=== PATIENT | female | born 1940 | race Caucasian/White ===

== ENCOUNTER 2019-11-20 19:22 | Inpatient (IN) | payer OTHER ==
[~2019-11-20] VITALS: Ht 162.6 cm; Wt 64.6 kg
[~2019-11-20 19:22] MED LIST: AMLO-150 PO; CALC-112 PO; HYDR-3245 PO; HYDR25TA6 PO
--- NOTE | 2019-11-20 19:40 | NUR ---
TASK RN: THIS IS A 79Y F BIB EMS FROM HOME FOR INC IN BREATHING DIFFICULTY, WEIGHT GAIN OF 4LBS IN 2 DAYS. UPON EMS ARRIVAL PT SAT 75% ON BASELINE 5L NC. PT GIVEN 1ALB 1DOUNEB VISUAL MERCHANDISING COORDINATOR PT NOW SAT 98% ON HER BASELINE 5L NC. RESP EVEN AND UNLABORED AT 16. PT CONNECTED TO ALL MONITORING. REPORT TO GENESIS VERA RN.
--- NOTE | 2019-11-20 20:06 | NUR ---
radiology to bedside
[2019-11-20 20:28] LABS: BASOPHILS # (AUTO) 0.06 x10^3/uL (0-0.1); BASOPHILS % (AUTO) 1 % (0-1); EOSINOPHILS # (AUTO) 0.13 x10^3/uL (0-0.4); EOSINOPHILS % (AUTO) 1 % (1-7); LYMPHOCYTES # (AUTO) 0.96 x10^3/uL (1-3.4); LYMPHOCYTES % (AUTO) 8 % (22-44); MD NO; MEAN CORPUSCULAR HEMOGLOBIN 23.5 pg (27.0-34.8); MEAN PLATELET VOLUME 8.2 fL (7.4-10.4); MONOCYTES # (AUTO) 0.54 x10^3/uL (0.2-0.8); MONOCYTES % (AUTO) 5 % (2-9); NEUTROPHILS # (AUTO) 10.25 x10^3/uL (1.8-6.8); NEUTROPHILS % (AUTO) 86 % (42-75); PLATELET COUNT 795 x10^3/uL (130-400); RED BLOOD COUNT 5.54 x10^6/uL (3.82-5.3); RED CELL DISTRIBUTION WIDTH 19.9 % (9.6-15.2)
[2019-11-20 20:38] LABS: ALANINE AMINOTRANSFERASE 21 U/L (12-78); ALBUMIN 2.7 g/dL (3.4-5.0); ANION GAP 8 mmol/L (5-15); CALCIUM 8.2 mg/dL (8.5-10.1); CHLORIDE 103 mmol/L (98-107); CREATININE 1.56 mg/dL (0.55-1.02)
[2019-11-20 20:42] LABS: ALKALINE PHOSPHATASE 61 U/L (45-117); BILIRUBIN,TOTAL 0.4 mg/dL (0.2-1.0); TOTAL PROTEIN 6.8 g/dL (6.4-8.2); TROPONIN I < 0.015 ng/mL (0.000-0.045)
--- NOTE | 2019-11-20 20:56 | NUR ---
BS REPORT FROM GENESIS ALLISON. PT CARE TRANSFERRED AT THIS TIME.
--- NOTE | 2019-11-20 21:06 | NUR ---
REPORT TO IZABEL ALLISON PROVIDER MADE AWARE OF TESTING RESULTS
--- NOTE | 2019-11-20 21:30 | NUR ---
RN TO BS TO UPDATE PT ON POC. PT CAME IN TODAY BY [facility] DUE TO DIFFICULTY BREATHING, NEB IN ROUTE AND PT STATES "IT FIXED ME". BILATERAL WHEEZING NOTED ON AUSCULTATION OF LUNGS. PT NAD, P/W/D, RESTING IN GURNEY, ASKING FOR WATER OR COFFEE, RN PROVIDED SMALL SIPS WATER. PT VSS. WAITING FOR MD RECHECK. WCTM.
[2019-11-20] MEDS ORDERED: POLYETHYLENE GLYCOL 17 GM PACKET PO PRN (23:00)
[2019-11-20] MEDS ORDERED: BISACODYL 10 MG SUPP PR PRN (23:00)
[2019-11-20] MEDS ORDERED: FUROSEMIDE 40 MG/4 ML IV ONE (23:00)
[2019-11-20] MEDS ORDERED: HYDROcodone/APAP 10/325 MG TABLET PO PRN (23:00)
[2019-11-20] MEDS ORDERED: ONDANSETRON ODT 4 MG PO PRN (23:00)
[2019-11-20] MEDS: CEFTRIAXONE PMX 1GM/50ML 50 ML IV SCH (23:46)
[2019-11-20] MEDS: NICOTINE 14MG/24 HR PATCH.TD24 TD SCH (23:46)
[2019-11-20] MEDS: SODIUM CHLORIDE FLUSH 10ML SYR IVF SCH (23:47)
[2019-11-20] MEDS: HEPARIN 5,000 UNITS/ML, 1ML SQ SCH (23:47)
[2019-11-20] MEDS: methylPREDNISolone SOD SUCC 125 MG/2 ML IVPush SCH (23:48)
[2019-11-21 00:07] VITALS: BP 158/62
[2019-11-21] MEDS: AZITHROMYCIN 500 MG in SODIUM CHLORIDE 0.9% 250 ML IV SCH (00:50)
[2019-11-21 05:24] LABS: CHLORIDE 103 mmol/L (98-107)
[2019-11-21 05:33] LABS: ANION GAP 8 mmol/L (5-15); CALCIUM 8.2 mg/dL (8.5-10.1); CHOL/HDL RATIO 1.7; CHOLESTEROL, TOTAL 128 mg/dL (140-239); CREATININE 1.36 mg/dL (0.55-1.02); HDL CHOL % 59 % (28-40); HDL CHOLESTEROL (DIRECT) 75 mg/dL (40-60); LDL CHOLESTEROL,CALCULATED 46 mg/dL (54-169); LDL/HDL RATIO 0.6 (0.5-3.0); TRIGLYCERIDES 37 mg/dL (50-200); TROPONIN I < 0.015 ng/mL (0.000-0.045); VLDL CHOLESTEROL 7 mg/dL (0-25)
[2019-11-21 05:34] LABS: MEAN CORPUSCULAR HEMOGLOBIN 23.2 pg (27.0-34.8); MEAN CORPUSCULAR HGB CONC 30.7 g/dL (32.4-35.8); MEAN PLATELET VOLUME 8.6 fL (7.4-10.4); PLATELET COUNT 826 x10^3/uL (130-400); RED BLOOD COUNT 5.43 x10^6/uL (3.82-5.3); RED CELL DISTRIBUTION WIDTH 19.9 % (9.6-15.2)
[2019-11-21] MEDS: methylPREDNISolone SOD SUCC 125 MG/2 ML IVPush SCH ×3 (05:37→20:50)
[2019-11-21] MEDS: ALBUTEROL HFA 90 MCG/SPRAY INH SCH ×4 (05:37→20:52)
[2019-11-21 06:09] LABS: BASOPHILS % (AUTO) 0 % (0-1); EOSINOPHILS # (AUTO) 0.01 x10^3/uL (0-0.4); EOSINOPHILS % (AUTO) 0 % (1-7); LYMPHOCYTES # (AUTO) 0.32 x10^3/uL (1-3.4); LYMPHOCYTES % (AUTO) 3 % (22-44); MD SCAN; MONOCYTES # (AUTO) 0.04 x10^3/uL (0.2-0.8); MONOCYTES % (AUTO) 0 % (2-9); NEUTROPHILS # (AUTO) 9.92 x10^3/uL (1.8-6.8); NEUTROPHILS % (AUTO) 96 % (42-75)
[2019-11-21 07:55] VITALS: BP 165/71
[2019-11-21] MEDS: FUROSEMIDE 20 MG/2 ML IV SCH ×2 (08:06→16:47)
[2019-11-21] MEDS: HEPARIN 5,000 UNITS/ML, 1ML SQ SCH ×3 (08:06→23:30)
[2019-11-21] MEDS: HYDROcodone/APAP 10/325 MG TABLET PO PRN ×3 (08:33→20:46)
[2019-11-21] MEDS: SEREVENT HOMEMEDPO SCH (08:33)
[2019-11-21] MEDS: CALCIUM/VITAMIN D3 250-125 TABLET PO SCH (08:33)
[2019-11-21] MEDS: SENNA/DOCUSATE TABLET PO SCH (08:33)
[2019-11-21] MEDS: SODIUM CHLORIDE FLUSH 10ML SYR IVF SCH ×2 (08:33→20:46)
[2019-11-21] MEDS: AMLODIPINE 5 MG TABLET PO SCH (08:33)
[2019-11-21] MEDS: INSULIN LISPRO 100 UNITS/ML, PEN SQ-INSULIN SCH ×3 (11:00→21:00)
[2019-11-21] MEDS ORDERED: POTA20TA89 PO (11:05)
[2019-11-21] MEDS ORDERED: AMIO200T42 PO (11:05)
[2019-11-21] MEDS ORDERED: EZET10TA48 PO (11:05)
[2019-11-21] MEDS ORDERED: GABA-826 PO (11:05)
[2019-11-21] MEDS ORDERED: TORS20TA2 PO (11:05)
[2019-11-21] MEDS ORDERED: OMEP20CA20 PO (11:05)
[2019-11-21] MEDS ORDERED: APIX2.5T PO (11:05)
[2019-11-21 11:48] LABS: TROPONIN I < 0.015 ng/mL (0.000-0.045)
[2019-11-21 13:58] VITALS: BP 151/55
[2019-11-21] MEDS: ACETAMINOPHEN 325 MG TABLET PO PRN ×2 (16:54→20:45)
[2019-11-21 18:51] VITALS: BP 149/87
[2019-11-21] MEDS: CEFTRIAXONE PMX 1GM/50ML 50 ML IV SCH (23:00)
[2019-11-21] MEDS: NICOTINE 14MG/24 HR PATCH.TD24 TD SCH (23:00)
[2019-11-22] MEDS: AZITHROMYCIN 500 MG in SODIUM CHLORIDE 0.9% 250 ML IV SCH (00:31)
[2019-11-22 00:45] VITALS: BP 148/62
[2019-11-22] MEDS: methylPREDNISolone SOD SUCC 125 MG/2 ML IVPush SCH ×3 (05:00→21:05)
[2019-11-22] MEDS: ALBUTEROL HFA 90 MCG/SPRAY INH SCH ×4 (05:21→21:05)
[2019-11-22] MEDS: HYDROcodone/APAP 10/325 MG TABLET PO PRN ×3 (05:30→21:16)
[2019-11-22 05:44] LABS: BASOPHILS % (AUTO) 0 % (0-1); EOSINOPHILS % (AUTO) 0 % (1-7); LYMPHOCYTES # (AUTO) 0.62 x10^3/uL (1-3.4); LYMPHOCYTES % (AUTO) 6 % (22-44); MD NO; MEAN CORPUSCULAR HEMOGLOBIN 23.5 pg (27.0-34.8); MEAN CORPUSCULAR HGB CONC 31.1 g/dL (32.4-35.8); MEAN PLATELET VOLUME 8.5 fL (7.4-10.4); MONOCYTES % (AUTO) 1 % (2-9); NEUTROPHILS # (AUTO) 10.52 x10^3/uL (1.8-6.8); NEUTROPHILS % (AUTO) 94 % (42-75); PLATELET COUNT 844 x10^3/uL (130-400); RED BLOOD COUNT 5.45 x10^6/uL (3.82-5.3)
[2019-11-22 05:58] LABS: ANION GAP 7 mmol/L (5-15); CALCIUM 8.8 mg/dL (8.5-10.1); CHLORIDE 103 mmol/L (98-107)
[2019-11-22 05:59] LABS: CREATININE 1.13 mg/dL (0.55-1.02)
[2019-11-22] MEDS: ACETAMINOPHEN 325 MG TABLET PO PRN (06:48)
[2019-11-22] MEDS: HEPARIN 5,000 UNITS/ML, 1ML SQ SCH (06:55)
[2019-11-22 06:59] VITALS: BP 150/60
[2019-11-22] MEDS: INSULIN LISPRO 100 UNITS/ML, PEN SQ-INSULIN SCH ×4 (07:00→21:00)
[2019-11-22] MEDS: SENNA/DOCUSATE TABLET PO SCH (09:00)
[2019-11-22] MEDS: SEREVENT HOMEMEDPO SCH (09:00)
[2019-11-22] MEDS: AMIODARONE 200 MG TABLET PO SCH (09:13)
[2019-11-22] MEDS: OMEPRAZOLE 20 MG CAPSULE.DR PO SCH (09:13)
[2019-11-22] MEDS: GABAPENTIN 100 MG CAPSULE PO SCH ×2 (09:13→21:05)
[2019-11-22] MEDS: AMLODIPINE 5 MG TABLET PO SCH (09:13)
[2019-11-22] MEDS: CALCIUM/VITAMIN D3 250-125 TABLET PO SCH (09:13)
[2019-11-22] MEDS: FUROSEMIDE 20 MG/2 ML IV SCH ×2 (09:14→17:44)
[2019-11-22] MEDS: EZETIMIBE 10 MG TABLET PO SCH (09:14)
[2019-11-22] MEDS: SODIUM CHLORIDE FLUSH 10ML SYR IVF SCH ×2 (09:16→21:05)
[2019-11-22 09:18] VITALS: BP 127/45
[2019-11-22 14:14] VITALS: BP 132/51
[2019-11-22] MEDS: APIXABAN 2.5 MG TABLET PO SCH ×2 (14:27→23:17)
[2019-11-22 20:59] VITALS: BP 151/64
[2019-11-22] MEDS: NICOTINE 14MG/24 HR PATCH.TD24 TD SCH (23:16)
[2019-11-22] MEDS: CEFTRIAXONE PMX 1GM/50ML 50 ML IV SCH (23:17)
[2019-11-23 02:06] VITALS: BP 140/57
[2019-11-23] MEDS: methylPREDNISolone SOD SUCC 125 MG/2 ML IVPush SCH ×2 (04:59→17:09)
[2019-11-23] MEDS: ALBUTEROL HFA 90 MCG/SPRAY INH SCH ×4 (05:01→21:03)
[2019-11-23 05:11] LABS: ANION GAP 7 mmol/L (5-15); CALCIUM 8.7 mg/dL (8.5-10.1); CHLORIDE 103 mmol/L (98-107)
[2019-11-23 05:12] LABS: CREATININE 1.14 mg/dL (0.55-1.02)
[2019-11-23 05:14] LABS: MEAN CORPUSCULAR HEMOGLOBIN 23.3 pg (27.0-34.8); MEAN CORPUSCULAR HGB CONC 30.7 g/dL (32.4-35.8); MEAN PLATELET VOLUME 8.4 fL (7.4-10.4); PLATELET COUNT 827 x10^3/uL (130-400); RED BLOOD COUNT 5.66 x10^6/uL (3.82-5.3); RED CELL DISTRIBUTION WIDTH 19.5 % (9.6-15.2)
[2019-11-23 06:11] LABS: BASOPHILS % (AUTO) 0 % (0-1); EOSINOPHILS # (AUTO) 0.05 x10^3/uL (0-0.4); EOSINOPHILS % (AUTO) 0 % (1-7); LYMPHOCYTES # (AUTO) 0.41 x10^3/uL (1-3.4); LYMPHOCYTES % (AUTO) 3 % (22-44); MD SCAN; MONOCYTES # (AUTO) 0.18 x10^3/uL (0.2-0.8); MONOCYTES % (AUTO) 1 % (2-9); NEUTROPHILS # (AUTO) 13.91 x10^3/uL (1.8-6.8); NEUTROPHILS % (AUTO) 96 % (42-75)
[2019-11-23] MEDS: INSULIN LISPRO 100 UNITS/ML, PEN SQ-INSULIN SCH ×4 (06:42→21:00)
[2019-11-23 07:54] VITALS: BP 139/65
[2019-11-23] MEDS: SENNA/DOCUSATE TABLET PO SCH (07:57)
[2019-11-23] MEDS: AZITHROMYCIN 500 MG TABLET PO SCH (07:58)
[2019-11-23] MEDS: AMLODIPINE 5 MG TABLET PO SCH (07:58)
[2019-11-23] MEDS: GABAPENTIN 100 MG CAPSULE PO SCH ×2 (07:58→21:03)
[2019-11-23] MEDS: OMEPRAZOLE 20 MG CAPSULE.DR PO SCH (07:58)
[2019-11-23] MEDS: AMIODARONE 200 MG TABLET PO SCH (07:58)
[2019-11-23] MEDS: APIXABAN 2.5 MG TABLET PO SCH ×2 (07:58→21:03)
[2019-11-23] MEDS: CALCIUM/VITAMIN D3 250-125 TABLET PO SCH (07:58)
[2019-11-23] MEDS: EZETIMIBE 10 MG TABLET PO SCH (07:59)
[2019-11-23] MEDS: FUROSEMIDE 20 MG/2 ML IV SCH (08:01)
[2019-11-23] MEDS: SODIUM CHLORIDE FLUSH 10ML SYR IVF SCH ×2 (08:02→21:00)
[2019-11-23] MEDS: SEREVENT HOMEMEDPO SCH (08:03)
[2019-11-23] MEDS ORDERED: POTASSIUM CHLORIDE 20 MEQ TAB.ER.PRT PO ONE (10:00)
[2019-11-23] MEDS ORDERED: POTASSIUM CHLORIDE 20 MEQ TAB.ER.PRT ONE (14:13)
[2019-11-23] MEDS: HYDROcodone/APAP 10/325 MG TABLET PO PRN ×2 (14:18→21:02)
[2019-11-23] MEDS: FUROSEMIDE 20 MG TABLET PO SCH (17:09)
[2019-11-23 21:01] VITALS: BP 145/59
[2019-11-23] MEDS: NICOTINE 14MG/24 HR PATCH.TD24 TD SCH (23:54)
[2019-11-23] MEDS: CEFTRIAXONE PMX 1GM/50ML 50 ML IV SCH (23:55)
[2019-11-24] MEDS: ACETAMINOPHEN 325 MG TABLET PO PRN (00:33)
[2019-11-24 01:48] VITALS: BP 136/55
[2019-11-24] MEDS: ALBUTEROL HFA 90 MCG/SPRAY INH SCH ×2 (05:53→08:31)
[2019-11-24] MEDS: methylPREDNISolone SOD SUCC 125 MG/2 ML IVPush SCH (05:53)
[2019-11-24 06:20] LABS: ANION GAP 5 mmol/L (5-15); CALCIUM 8.3 mg/dL (8.5-10.1); CHLORIDE 104 mmol/L (98-107); CREATININE 1.25 mg/dL (0.55-1.02)
[2019-11-24] MEDS: INSULIN LISPRO 100 UNITS/ML, PEN SQ-INSULIN SCH (07:05)
[2019-11-24 08:02] VITALS: BP 148/68
[2019-11-24] MEDS ORDERED: AMLO-150 PO (08:10)
[2019-11-24] MEDS ORDERED: FURO20TA3 PO ×2 (08:10)
[2019-11-24] MEDS ORDERED: ALBU18HF INH (08:10)
[2019-11-24] MEDS ORDERED: AZIT500T PO ×2 (08:10)
[2019-11-24] MEDS ORDERED: AMOX1TAB64 PO ×2 (08:10)
[2019-11-24] MEDS ORDERED: POTA20TA89 PO (08:10)
[2019-11-24] MEDS ORDERED: NICO-486 TD ×2 (08:10)
[2019-11-24] MEDS ORDERED: APIX2.5T PO (08:10)
[2019-11-24] MEDS: OMEPRAZOLE 20 MG CAPSULE.DR PO SCH (08:14)
[2019-11-24] MEDS: CALCIUM/VITAMIN D3 250-125 TABLET PO SCH (08:15)
[2019-11-24] MEDS: GABAPENTIN 100 MG CAPSULE PO SCH (08:15)
[2019-11-24] MEDS: SENNA/DOCUSATE TABLET PO SCH (08:16)
[2019-11-24] MEDS: EZETIMIBE 10 MG TABLET PO SCH (08:16)
[2019-11-24] MEDS: AZITHROMYCIN 500 MG TABLET PO SCH (08:16)
[2019-11-24] MEDS: APIXABAN 2.5 MG TABLET PO SCH (08:16)
[2019-11-24] MEDS: AMIODARONE 200 MG TABLET PO SCH (08:16)
[2019-11-24] MEDS: AMLODIPINE 5 MG TABLET PO SCH (08:17)
[2019-11-24] MEDS: FUROSEMIDE 20 MG TABLET PO SCH (08:17)
[2019-11-24] MEDS: SODIUM CHLORIDE FLUSH 10ML SYR IVF SCH (08:19)
[2019-11-24] MEDS ORDERED: LACT1CAP11 PO (08:23)
[2019-11-24] MEDS ORDERED: GUAI400T81 PO (08:26)
[2019-11-24] MEDS ORDERED: PRED10TA PO ×2 (08:26)
[2019-11-24] MEDS: HYDROcodone/APAP 10/325 MG TABLET PO PRN (08:31)
[2019-11-24] MEDS: SEREVENT HOMEMEDPO SCH (09:00)
[2019-12-26] MEDS ORDERED: NICO-486 TD (09:23)
[2019-12-26] MEDS ORDERED: FERR-51 PO (09:23)
[2019-12-26] MEDS ORDERED: FURO20TA3 PO (09:23)
== END 2019-11-24 11:20 | disposition home health service (06) | DRG 193 ==
LOC: ED 21:45 → EDIP 21:54 → ED 22:08 → 5SO 23:08 → DCLOUNGE 11-24 11:13
PROVIDERS: ADMIT Family Medicine; ATTEND Internal Medicine
DX: J18.9 Pneumonia, unspecified organism (principal); J96.21 Acute and chronic respiratory failure with hypoxia; N17.0 Acute kidney failure with tubular necrosis; I50.33 Acute on chronic diastolic (congestive) heart failure; I13.0 Hypertensive heart and chronic kidney disease with heart failure and stage 1 through stage 4 chronic kidney disease, or unspecified chronic kidney disease; J44.0 Chronic obstructive pulmonary disease with (acute) lower respiratory infection; J44.1 Chronic obstructive pulmonary disease with (acute) exacerbation; N18.9 Chronic kidney disease, unspecified; I48.91 Unspecified atrial fibrillation; M81.0 Age-related osteoporosis without current pathological fracture; Z88.8 Allergy status to other drugs, medicaments and biological substances; F17.200 Nicotine dependence, unspecified, uncomplicated; Z79.4 Long term (current) use of insulin; Z79.899 Other long term (current) drug therapy; Z80.8 Family history of malignant neoplasm of other organs or systems; Z87.11 Personal history of peptic ulcer disease; Z90.710 Acquired absence of both cervix and uterus; Z99.81 Dependence on supplemental oxygen
CPT/HCPCS: 36415; 71045; 71046; 80048; 80053; 80061; 82728; 82962; 83540; 83550; 83735; 83880; 84145; 84484; 85025; 93005; 93306; 96374; 99285; G0378; J0456; J0696; J1644; J1940; J1815; J2930; J7050